=== PATIENT | male | born 1985 | race American Indian/Alaskan Native ===

== ENCOUNTER 2022-01-21 09:28 | Emergency (ER) | payer SELFPAY ==
[2022-01-21 10:45] LABS: Amorphous Crystals,Urine 3+; Bacteria,Urine 3+ /HPF (Negative); Bilirubin,Urine NEG (Negative); Blood,Urine LG (Negative); Color,Urine Yellow (Yellow); Mucus,Urine 3+ /HPF; Urobilinogen,Urine < 2.0 mg/dL (<2.0)
[2022-01-21 10:51] LABS: RBC,Urine < 1.0 /HPF (0.0-6.0)
[2022-01-21 12:36] VITALS: BP 129/80
--- NOTE | 2022-01-21 12:54 | Emergency Department Report ---
ED Male HPI - General Chief complaint: Urogenital-Male Stated complaint: DARK URINE Source: patient Mode of arrival: Ambulatory Limitations: No Limitations - History of Present Illness Initial comments: 36-year-old male presents to the ED with dark-colored urine x2 days. Patient states that he started a new exercise and was taking [id number] medication prior to exercising because back in body muscle build. Patient denies any dysuria, fever ,nausea or chills. Patient states that he is drinking water daily during exercise. Patient is alert and oriented x3 no acute distress noted no ill appearance noted Onset/Timin -: days(s) Radiation: none Severity scale (0 -10): 0 Improves with: none Worsens with: none denies other symptoms - Related Data Previous Rx's Medication Instructions Recorded Last Taken Type Ibuprofen [Motrin] 800 mg PO Q8HR PRN 15 Days #30 01/21/22 Unknown Rx tablet levoFLOXacin [Levaquin TAB] 750 mg PO QDAY 7 Days #7 tablet 01/21/22 Unknown Rx Allergies Allergy/AdvReac Type Severity Reaction Status Date / Time No Known Allergies Allergy Verified 01/21/22 09:31 ED Review of Systems ROS: Stated complaint: DARK URINE Other details as noted in HPI Constitutional: denies: chills, fever Eyes: denies: eye pain, eye discharge, vision change ENT: denies: ear pain, throat pain Respiratory: denies: cough, shortness of breath, wheezing Cardiovascular: denies: chest pain, palpitations Endocrine: no symptoms reported Gastrointestinal: denies: abdominal pain, nausea, diarrhea Genitourinary: denies: urgency, dysuria Musculoskeletal: denies: back pain, joint swelling, arthralgia Skin: denies: rash, lesions Neurological: denies: headache, weakness, paresthesias Psychiatric: denies: anxiety, depression Hematological/Lymphatic: denies: easy bleeding, easy bruising ED Past Medical Hx - Past Medical History Previous Medical History?: No - Surgical History Past Surgical History?: No - Social History Smoking Status: Former Smoker Substance Use Type: Marijuana - Medications Home Medications: Home Medications Medication Instructions Recorded Confirmed Last Taken Type Ibuprofen [Motrin] 800 mg PO Q8HR PRN 15 Days #30 01/21/22 Unknown Rx tablet levoFLOXacin [Levaquin TAB] 750 mg PO QDAY 7 Days #7 tablet 01/21/22 Unknown Rx ED Physical Exam - General Limitations: No Limitations General appearance: alert, in no apparent distress - Head Head exam: Present: atraumatic, normocephalic - Eye Eye exam: Present: normal appearance - ENT ENT exam: Present: mucous membranes moist - Neck Neck exam: Present: normal inspection - Respiratory Respiratory exam: Present: normal lung sounds bilaterally. Absent: respiratory distress - Cardiovascular Cardiovascular Exam: Present: regular rate, normal rhythm. Absent: systolic murmur, diastolic murmur, rubs, gallop - GI/Abdominal GI/Abdominal exam: Present: soft, normal bowel sounds - Rectal Rectal exam: Present: deferred - Extremities Exam Extremities exam: Present: normal inspection - Back Exam Back exam: Present: normal inspection - Neurological Exam Neurological exam: Present: alert, oriented X3 - Psychiatric Psychiatric exam: Present: normal affect, normal mood - Skin Skin exam: Present: warm, dry, intact, normal color. Absent: rash ED Course Vital Signs 01/21/22 01/21/22 09:32 12:32 Temperature 97.8 F 98.9 F Pulse Rate 95 H 68 Respiratory 18 20 Rate Blood Pressure 144/96 Blood Pressure 129/80 [Left] O2 Sat by Pulse 99 99 Oximetry ED Medical Decision Making - Medical Decision Making 36-year-old male presents to the ED with dark-colored urine x2 days. Patient states that he started a new exercise and was taking [id number] medication prior to exercising because back in body muscle build. Patient denies any dysuria, fever ,nausea or chills. Patient states that he is drinking water daily during exercise. Patient is alert and oriented x3 no acute distress noted no ill appearance noted. Physical examination unremarkable. Explained to patient to stop taking [id number] medication. Patient to increase oral .fluid intake. We will treat patient for urinary tract infection. Rechecked the patient is resting quietly quietly and comfortable and feeling better. I discussed the results of diagnostic study, my clinical impression and the plan for further treatment with the patient. Patient agrees with plan and discharge at this present time. All question addressed. I have given the patient instruction regarding a diagnosis ,expectation ,follow- up and return precaution. I explained to the patient that emergent condition may arise and to return to the ED for new worsen and any new persisting condition. I have explained the importance of following up with the primary care physician or referral physician listed below has instructed. The patient verbalized understanding of discharge instruction. Abnormal Lab Results 01/21/22 Unknown Urine Color Yellow Urine Turbidity Turbid Urine pH 5.0 Ur Specific [place] 1.024 Urine Protein 100 mg/dl Urine Glucose (UA) Neg Urine Ketones Neg Urine Blood Lg Urine Nitrite Neg Urine Bilirubin Neg Urine Urobilinogen < 2.0 Ur Leukocyte Esterase Neg Urine WBC (Auto) 35.0 H Urine RBC (Auto) < 1.0 Urine Bacteria (Auto) 3+ Urine WBC Clumps 3+ Amorphous Crystals 3+ Urine Mucus 3+ Urine Yeast (Budding) 3+ Critical care attestation.: If time is entered above; I have spent that time in minutes in the direct care of this critically ill patient, excluding procedure time. ED Disposition Clinical Impression: Acute urinary tract infection Disposition: HOME / SELF CARE / HOMELESS Is pt being admited?: No Does the pt Need Aspirin: No Condition: Stable Instructions: Antibiotic Medicine, Adult, Urinary Tract Infection, Adult, Keeping Yourself Hydrated During Sports and Play, Teen Additional Instructions: Increase oral intake Take antibiotic as prescribed Return to the ED for any worsening symptom Prescriptions: levoFLOXacin [Levaquin TAB] 750 mg PO QDAY 7 Days #7 tablet Ibuprofen [Motrin] 800 mg PO Q8HR PRN 15 Days #30 tablet PRN Reason: Pain, Mild (1-3) Referrals: ELLEN PHILLIPS MD [Primary Care Provider] - 3-5 Days Forms: Work/School Release Form(ED)
== END 2022-01-21 13:13 | disposition home or self-care (01) ==
LOC: ED 09:28
DX: N39.0 Urinary tract infection, site not specified (principal); Z87.891 Personal history of nicotine dependence
CPT/HCPCS: 81001; 87086; 99283